=== PATIENT | female | born 1955 | race Caucasian/White ===

== ENCOUNTER → 2016-07-18 | Outpatient (CLI) | payer BC ==
[~2016-07-18] MED LIST: AMBIEN PO; ASPIRINEC; BENAZEPRIL-HCTZ1 T18 PO; BETAMETHASONE D50 GM; BYETTA10 MCG/0.0 INJ; CALTRATE 600+D PO; CALTRATE PLUS T1 TAB; COUMADIN5 MG PO; CRESTOR; CRESTOR10 MG PO; DYRENIUM100 MG; E.E.S. 200200 MG/5 M; FISH OIL 1,001000 M1 PO; FLEXERIL PO; FLOVENT DI50 MCG/DIS IH; FORTAMET; GLIPIZIDE10 MG PO; GLUCOPHAGE500 M1 PO; GLUCOTROL; HYDROCODON-ACE1 EAC4 PO; HYDROCODONE-APA1 T33 PO; KEPPRA500 M2 PO; LEVEMIR100 U/ML SUBQ; LORTAB 7.5-5001 TAB; LOTENSIN HCT 201 TA1 PO; LOVAZA; METAMUCIL0.52 G PO; METFORMIN HCL500 M1 PO; METFORMIN HCL500 M2 PO; NAPROXEN PO; NEURONTIN PO; NEXIUM; NORVASC PO; NOVOLIN N100 UNIT/1 SUBQ; OMEPRAZOLE40 MG PO; PHENERGAN; PHENERGAN25 M1 PO; PLAVIX PO; REBETOL200 MG; TOPROL XL; TOPROL XL 50 MG50 M1 PO; TRICOR PO; TRICOR145 MG PO; ULTRAM PO; ZYRTEC10 M2 PO; [UNRECOGNIZED DRUG - OTHER]
--- NOTE | ~2016-07-18 | CR63 ---
[facility] A Service of [facility] RADIOLOGY TEXT RESULTS PATIENT: SAAD WEBB LOCATION: [facility] : 53 UNIT #: [id number] AGE: [address]: Alicia Chavez MD SEX: F ORDER DR: [id number] [facility] [address] [facility] [facility] [address] [facility]. [place], [place] [address] [id number] O MR#: [id number] Acc #: [id number] NAME: SAAD WEBB. : 1955 SEX: F STUDY DATE/TIME: 07/18/2016 10:55 UNIT: [facility] ROOM: STUDY DESCRIPTION: CR Chest 2 View Attending Physician: Alicia Chavez M.D. Referring Physician: Alicia Chavez M.D. Ordering Physician: Alicia Chavez M.D. Primary Care Physician: Tyron May M.D. MEDICAL IMAGING REPORT This report is preliminary unless electronic signature is present REVISED REPORT SEE ADDENDUM EXAM Chest 2 views 07/18/2016 1108 hours HISTORY 61-year-old woman with shortness of air for 1 day. History of hypertension and prior CVA. COMPARISON 03/11/2015 FINDINGS Portable upright chest demonstrates heart size at the upper limits of normal with tortuous aorta. Patient is slightly rotated and arch vessels are prominent in the right paratracheal region felt likely related to differences in positioning. The lungs are clear and there are no effusions. IMPRESSION Slightly rotated PA film with mild cardiomegaly slightly increased from 03/11/2015. No acute cardiopulmonary findings. Dictated by... Jossie Costello M.D. THIS IS AN ELECTRONICALLY VERIFIED REPORT Jossie Costello M.D. at 07/21/2016 2:30 PM SMM/cele TD: 07/18/2016 13:50 JOB #: [id number] [facility] A Service of [facility] RADIOLOGY TEXT RESULTS PATIENT: SAAD WEBB LOCATION: [facility] #: [id number] : 53 UNIT #: [id number] AGE: [address]: Alicia Chavez MD SEX: F ORDER DR: ADDENDUM Technologist received a phone call from Dr. Chavez's office requesting that the film be reviewed for presence of metastatic disease. Review of the film in comparison to 03/11/2015 demonstrates no evidence of metastatic disease. The heart size is slightly larger and the aorta is tortuous. There is no definite adenopathy. No pulmonary nodules or pleural effusions. No bone lesions. Chest CT would be more sensitive. STAT * RESULT Dictated by... Jossie Costello M.D. THIS IS AN ELECTRONICALLY VERIFIED REPORT Jossie Costello M.D. at 08/03/2016 2:30 PM ANUP/jayro TD: 08/02/2016 09:56 JOB #: [id number] CC: [email or web address] Please Delete MEDICAL IMAGING REPORT Page 1 of 1 COPY
== END | disposition home or self-care (01) ==
LOC: CRAD 10:43
DX: C69.31 Malignant neoplasm of right choroid (principal); I51.7 Cardiomegaly
CPT/HCPCS: 71020